=== PATIENT | male | born 1945 | race Caucasian/White ===

== ENCOUNTER 2017-03-17 08:33 | Emergency (ER) | payer OTHER ==
[~2017-03-17] VITALS: Ht 172.7 cm; Wt 103.7 kg
[2017-03-17 09:37] LABS: EOSINOPHIL (%) 2.5 % (0-5); EOSINOPHIL COUNT 0.2 K/uL (0-0.3); HEMATOCRIT 45.4 % (38.0-50.0); IMMATURE GRANULOCYTE (%) 0.5 % (0.0-0.7); INSTRUMENT ABS NEUTROPHIL CT 4.9 K/uL; LYMPHOCYTE COUNT 2.1 K/uL (1.0-2.8); MCH 30.6 PG (29.0-34.0); MCHC 34.4 G/DL (30.0-36.0); MEAN PLAT.VOLUME 11.1 uM^3 (9.0-12.4); MONOCYTE (%) 8.8 % (3-12); MONOCYTE COUNT 0.7 K/uL (0-0.8); NEUTROPHIL (%) 61.1 % (45-76); NEUTROPHIL COUNT 4.9 K/uL (1.8-6.4); PLATELET COUNT 231 K/uL (156-360); RBC DIS.WIDTH-CV 12.4 % (11.8-14.6); RBC DIS.WIDTH-SD 40.7 % (39-53)
[2017-03-17 09:49] LABS: CHLORIDE 107 mEq/L (99-109); SODIUM 141 mEq/L (136-147)
[2017-03-17 09:51] LABS: GLUCOSE 123 mg/dL (70-99)
[2017-03-17 09:53] LABS: ANION GAP 11 MEQ/L (2-14); TOTAL BILIRUBIN 0.7 mg/dL (0.0-1.0)
[2017-03-17 09:55] LABS: ALKALINE PHOSPHATASE 58 IU/L (3-129); GFR ESTIMATE (CALCULATED) > 59 mL/min/
[2017-03-17 09:56] LABS: UREA NITROGEN (BUN) 12 mg/dL (9-23)
[2017-03-17 09:58] LABS: LIPASE 56 U/L (1.0-51.0)
[2017-03-17] MEDS ORDERED: FLEET ENEMA-AD118 ML PR (11:12)
[2017-03-17] MEDS ORDERED: CITRATE OF MAG296 ML PO (11:12)
[2017-03-17] MEDS ORDERED: MILK OF MAGN PO (11:12)
[2017-03-17 12:26] VITALS: BP 115/78
== END 2017-03-17 12:27 | disposition home or self-care (01) ==
LOC: EME 08:33
PROVIDERS: Physician Assistant
DX: K85.90 Acute pancreatitis without necrosis or infection, unspecified (principal); K59.00 Constipation, unspecified; R11.2 Nausea with vomiting, unspecified
CPT/HCPCS: 74020; 80053; 83605; 83690; 85025; 99281; 99284; J1885; J7120

== ENCOUNTER 2017-07-12 11:42 | Day surgery (SDC) | payer OTHER, MEDICARE ==
[~2017-07-12 11:42] MED LIST: AMLODIPINE BESY10 MG PO; CITRATE OF MAG296 ML PO; FLEET ENEMA-AD118 ML PR; MILK OF MAGN PO
== END 2017-07-12 14:25 | disposition home or self-care (01) ==
LOC: CATH 11:42
DX: Z45.2 Encounter for adjustment and management of vascular access device (principal); I87.8 Other specified disorders of veins; C25.9 Malignant neoplasm of pancreas, unspecified
CPT/HCPCS: C1751; C1894; J0690; J1644; J2250; J3010; S0020